=== PATIENT | male | born 1945 | race Caucasian/White ===

== ENCOUNTER 2020-03-29 14:49 | Emergency (ER) | payer MEDICARE, OTHER, SELFPAY ==
[2020-03-29 14:55] VITALS: BP 144/75; PULSE 63; RESP 14; TEMP 36.8; O2SAT 97; BMI 27.9
--- NOTE | 2020-03-29 16:07 | DI.US.S_ITS ---
PROCEDURE: US PERIPH VENOUS LOW EXTREM RT INDICATIONS: Right leg pain swelling/history of DVT TECHNIQUE: Real-time imaging, as well as color and pulse Doppler interrogation, were performed of the lower extremity deep veins from the inguinal ligament to the popliteal fossa. COMPARISON: None. FINDINGS: The common femoral, femoral and popliteal veins are normally compressible, and free of intraluminal thrombus. Color and pulse Doppler demonstrate normal phasic intraluminal flow. There is normal augmentation response to distal compression maneuver. IMPRESSION: No DVT in the right lower extremity. Dictated by: Camila Monte M.D. on 03/29/2020 at 18:54 Approved by: Camila Monte M.D. on 03/29/2020 at 18:54
--- NOTE | 2020-03-29 16:07 | ED.EXTPRO ---
HPI - Extremity Problem <Fran Flores MD - Last Filed: 04/06/20 05:01> General Chief complaint: Extremity Problem,Nontraumatic Stated complaint: states possible blood clot Time Seen by Provider: 03/29/20 15:31 Source: patient Mode of arrival: Ambulatory Limitations: no limitations History of Present Illness HPI Narrative: Patient here with a friend. Complains of right calf swelling and palpable cord at the calf. 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 Was on Eliquis for 6 weeks and completed. Denies denies any chest pain or dyspnea. No recent immobilization or surgery. Patient did drive up here from [place] last week. Did take a break during the drive. Patient noticed the swelling 11:00 p.m. last night MD Complaint: extremity swelling Related Data Allergies Allergy/AdvReac Type Severity Reaction Status Date / Time Penicillins Allergy Verified 03/29/20 14:55 Review of Systems <Fran Flores MD - Last Filed: 04/06/20 05:01> Review of Systems Narrative: GENERAL: Denies chills, fatigue, malaise, fever, sweats. HEENT: Denies sinus pain, ear pain, sore throat, difficulty swallowing, dizziness. RESPIRATORY: Denies dyspnea, cough, wheezing, hemoptysis, sputum. CARDIOVASCULAR: Denies chest pain, palpitations, orthopnea, edema, GASTROINTESTINAL: Denies nausea, vomiting, abdominal pain, diarrhea, constipation, melena. : Denies dysuria, frequency, incontinence, hematuria, urinary retention. MUSCULOSKELETAL: denies weakness, joint pain, or bony pain, complains of muscle pain SKIN: Denies rash, skin lesions NEUROLOGIC: Denies weakness, headache, numbness, change in speech, confusion, seizures, incoordination. PSYCHIATRIC: No concerning psychosocial issues. ROS Unobtainable: All systems reviewed & are unremarkable except as noted in HPI and below Patient History <Fran Flores MD - Last Filed: 04/06/20 05:01> Social History Smoking Status: Never smoker Smoking Status: Never smoker alcohol intake frequency: 0-2 drinks per day Substance Use Type: does not use Exam <Fran Flores MD - Last Filed: 04/06/20 05:01> Narrative Exam Narrative: GENERAL: patient appears stated age. Well-nourished, well-developed patient, in no distress, not toxic HEAD: Atraumatic. Normocephalic. CARDIOVASCULAR: Regular rate and rhythm without murmurs, gallops, or rubs. RESPIRATORY: Clear to auscultation. Breath sounds equal bilaterally. No wheezes, rales, or rhonchi. EXTREMITIES: No edema or joint tenderness. Pant shoes and socks removed. Feet warm soft in pain. Strong pedal pulses. Calves grossly symmetric. There is palpable cord mid upper calf. 4 cm in length in vertical direction NEURO: AOx4. SKIN: No rash or erythema of visible areas PSYCH: Not anxious, is cooperative Initial Vital Signs Initial Vital Signs: Vital Signs Temperature 98.3 F 03/29/20 14:55 Pulse Rate 63 03/29/20 14:55 Respiratory Rate 14 03/29/20 14:55 Blood Pressure 144/75 H 03/29/20 14:55 Pulse Oximetry 97 03/29/20 14:55 <Marybeth Bird MD - Last Filed: 03/30/20 01:01> Initial Vital Signs Initial Vital Signs: Vital Signs Temperature 98.3 F 03/29/20 14:55 Pulse Rate 63 03/29/20 14:55 Respiratory Rate 14 03/29/20 14:55 Blood Pressure 144/75 H 03/29/20 14:55 Pulse Oximetry 97 03/29/20 14:55 Course <Fran Flores MD - Last Filed: 04/06/20 05:01> Course Course Narrative: Time 6:30 p.m., sign out Dr. Bird, awaiting results of doppler Orders Ordered: ED Orders 03/29/20 16:07 [facility] venous low extrem rt Stat Vital Signs Vital signs: Vital Signs - 8 hr 03/29/20 19:25 Pulse Rate 48 L Respiratory Rate 18 Blood Pressure 147/70 H Pulse Oximetry 99 <Marybeth Bird MD - Last Filed: 03/30/20 01:01> Orders Ordered: ED Orders 03/29/20 16:07 [facility] venous low extrem rt Stat Vital Signs Vital signs: Vital Signs - 8 hr 03/29/20 19:25 Pulse Rate 48 L Respiratory Rate 18 Blood Pressure 147/70 H Pulse Oximetry 99 MDM - Extremity (Nontraumatic) <Fran Flores MD - Last Filed: 04/06/20 05:01> Differential Diagnosis Differential diagnosis: Likely superficial thrombophlebitis and deep venous thrombosis of upper extremity MDM Narrative Medical decision making narrative: No indication for blood work at this time. Clinically not cellulitis or infection <Marybeth Bird MD - Last Filed: 03/30/20 01:01> Imaging Data US - DVT: Radiologist's Impression: IMPRESSION: No DVT in the right lower extremity. Dictated by: Camila Monte M.D. on 03/29/2020 at 18:54 Discharge Plan Departure Patient Disposition: Home Clinical Impression: Acute leg pain Qualifiers: Laterality: right Qualified Code(s): M79.604 - Pain in right leg Discharge Date/Time: 03/29/20 19:26 Instructions: DI for Leg Pain Activity Restrictions/Additional Instructions: Return if worse or any questions concerns or pain chest pain or trouble breathing. See family doctor when you return home.
[2020-03-29 19:25] VITALS: BP 147/70; PULSE 48; RESP 18; O2SAT 99
== END 2020-03-29 19:26 | disposition home or self-care (01) ==
PROVIDERS: Emergency Provider Emergency Medicine
DX: M79.604 Pain in right leg (principal); Z86.718 Personal history of other venous thrombosis and embolism; Z79.01 Long term (current) use of anticoagulants
CPT/HCPCS: 93971; 99283